=== PATIENT | male | born 1980 | race Caucasian/White ===

== ENCOUNTER 2016-06-10 15:01 | Emergency (ER) | payer MEDICAID ==
[2016-06-10 15:12] VITALS: TEMP 98.4
--- NOTE | 2016-06-10 15:35 | EDPHY ---
H & P Time Seen by Provider: 06/10/16 15:19 HPI/ROS: CHIEF COMPLAINT: Alcohol intoxication, vomiting. HISTORY OF PRESENT ILLNESS: This patient is a 35 year old male with a history of alcohol abuse who presents to the Emergency Department complaining of vomiting that he attributes to alcohol intoxication. He reports that he has been drinking heavily and blacking out regularly over the past few weeks; his last drink was just before he came to the ED. He states that he has a history of alcohol withdrawal seizures and is afraid of going through withdrawal. He continues to state that he is "doing this for my family" but it is unclear if he wishes to stop drinking; he does not want to go to the [facility]. He does not have any additional complaints. He denies any medical history apart from alcohol abuse. REVIEW OF SYSTEMS: Constitutional: +ETOH intoxication, no fever, no chills Eyes: No visual changes ENT: No sore throat Respiratory: No cough, no shortness of breath Cardiac: No chest pain Gastrointestinal: +vomiting, no abdominal pain Genitourinary: No hematuria, no dysuria Musculoskeletal: No leg pain or swelling Skin: No rash Neurological: No headache, no numbness, no weakness Psychiatric: No depression Past Medical/Surgical History: Alcoholism. Social History: Alcohol abuse, former smoker. Smoking Status: Former smoker Physical Exam: General Appearance: Alert, intoxicated, no distress Eyes: Pupils equal and round, no conjunctival pallor or injection ENT, Mouth: Mucous membranes moist Neck: Normal inspection Respiratory: Lungs are clear to auscultation Cardiovascular: Regular rate and rhythm Gastrointestinal: Abdomen is soft and non- tender Neurological: A&O, nonfocal, normal gait Skin: Warm and dry, no rash Extremities: Nontender, no pedal edema Psychiatric: Mood and affect normal Constitutional: Initial Vital Signs Temperature (C) 36.9 C 06/10/16 15:09 Heart Rate 102 H 06/10/16 15:09 Respiratory Rate 20 06/10/16 15:09 Blood Pressure 132/89 H 06/10/16 15:09 O2 Sat (%) 97 06/10/16 15:09 O2 Delivery Mode Room Air Allergies/Adverse Reactions: No Known Allergies Allergy (Verified 04/03/16 09:48) Home Medications: Medication Instructions Recorded Baclofen 04/03/16 Medical Decision Making ED Course/Re-evaluation: Labs obtained. ETOH is elevated at 427. The patient will be discharged when he is able to ambulate appropriately with instructions to check-in to the [facility] for alcohol detoxification. He will also be given a referral to the on-call primary care provider. He understands return precautions and is agreeable to this plan. - Data Points Laboratory Results: Laboratory Results 06/10/16 15:20 06/10/16 15:20 06/10/16 15:20 WBC 11.71 H 10^3/uL (3.80-9.50) RBC 4.67 10^6/uL (4.40-6.38) Hgb TNP Hct 45.6 % (40.0-51.0) MCV 97.6 fL (81.5-99.8) MCH TNP MCHC TNP RDW 12.5 % (11.5-15.2) Plt Count 146 L 10^3/uL (150-400) MPV 9.4 fL (8.7-11.7) Neut % (Auto) 72.1 % (39.3-74.2) Lymph % (Auto) 20.8 % (15.0-45.0) [place] % (Auto) 6.3 % (4.5-13.0) Eos % (Auto) 0.0 L % (0.6-7.6) Baso % (Auto) 0.4 % (0.3-1.7) Nucleat RBC Rel Count 0.0 % (0.0-0.2) Absolute Neuts (auto) 8.43 H 10^3/uL (1.70-6.50) Absolute Lymphs (auto) 2.44 10^3/uL (1.00-3.00) Absolute Monos (auto) 0.74 10^3/uL (0.30-0.80) Absolute Eos (auto) 0.00 L 10^3/uL (0.03-0.40) Absolute Basos (auto) 0.05 10^3/uL (0.02-0.10) Absolute Nucleated RBC 0.00 10^3/uL (0-0.01) Immature Gran % 0.4 % (0.0-1.1) Immature Gran # 0.05 10^3/uL (0.00-0.10) Platelet Estimate Pending Sodium 141 mEq/L (134-144) Potassium 3.6 mEq/L (3.5-5.2) Chloride 85 L mEq/L (97-110) Carbon Dioxide 27 mEq/l (22-31) Anion Gap 29 mEq/L (8-16) BUN 15 mg/dL (7-23) Creatinine 0.7 mg/dL (0.7-1.3) Estimated GFR > 60 Glucose 96 mg/dL (70-100) Calcium 9.6 mg/dL (8.5-10.4) Ethyl Alcohol 427 H* mg/dL (0-10) Departure - Departure Disposition: Home, Routine, Self-Care Clinical Impression: Alcoholic intoxication Condition: Good Instructions: Abuse of Alcohol (ED) Additional Instructions: 1. Avoid abusing alcohol. 2. Go to the [facility] for alcohol rehabilitation if you are interested in quitting drinking. 3. Return to the Emergency Department if you experience uncontrollable vomiting , seizures, confusion, or other serious concerns. Referrals: [facility] Detox 24 Hours [Outside] - As per Instructions Chato Joe MD [Medical Doctor] - As per Instructions Report Scribed for: Kasey Gandhi Report Scribed by: Carly Abernathy Date of Report: 06/10/16 Time of Report: 15:35 Physician Review and Approval Statement: 06/10/16 15:35 Portions of this note were transcribed by a medical chemist. I personally performed a history, physical exam, medical decision making, and confirmed accuracy of information the transcribed note.
[2016-06-10 15:52] LABS: ANION GAP 29 mEq/L (8-16); CALCIUM 9.6 mg/dL (8.5-10.4); CARBON DIOXIDE 27 mEq/l (22-31); CHLORIDE 85 mEq/L (97-110); CREATININE 0.7 mg/dL (0.7-1.3); GLOMERULAR FILTRATION RATE > 60; GLUCOSE 96 mg/dL (70-100); POTASSIUM 3.6 mEq/L (3.5-5.2); SODIUM 141 mEq/L (134-144)
[2016-06-10 16:20] LABS: ETHANOL SERUM 427 mg/dL (0-10)
[2016-06-10 16:53] LABS: % IMMATURE GRANULYOCYTES 0.4 % (0.0-1.1); ABSOLUTE IMMATURE GRANULOCYTES 0.05 10^3/uL (0.00-0.10); ADD DIFF? NO; ADD MORPH? YES; ADD SCAN? NO; ATYPICAL LYMPHOCYTE FLAG 0 (0-99); FRAGMENT RBC FLAG 0 (0-99); HEMATOCRIT 45.6 % (40.0-51.0); LEFT SHIFT FLG 0 (0-99); LIPEMIA HEMOLYSIS FLAG 100 (0-99); MEAN CELL VOLUME 97.6 fL (81.5-99.8); MEAN PLATELET VOLUME 9.4 fL (8.7-11.7); PLATELET CLUMPS FLAG 0 (0-99); PLATELET COUNT 146 10^3/uL (150-400); RED BLOOD CELL COUNT 4.67 10^6/uL (4.40-6.38); RED CELL DISTRIBUTION WIDTH 12.5 % (11.5-15.2)
[2016-06-10 17:31] VITALS: BP 126/67; PULSE 99; RESP 12; O2SAT 95
[2016-06-10 18:02] LABS: HYPOCHROMIA 1+; LARGE PLATELETS PRESENT; MACROCYTES 1+; PLATELET ESTIMATE ADEQUATE (ADEQ); POLYCHROMASIA 1+
== END 2016-06-10 17:30 | disposition home or self-care (01) ==
DX: F10.129 Alcohol abuse with intoxication, unspecified (principal); Z87.891 Personal history of nicotine dependence
CPT/HCPCS: G0480

== ENCOUNTER 2016-06-11 09:44 | Emergency (ER) | payer MEDICAID ==
[2016-06-11 09:49] VITALS: TEMP 98.4
[2016-06-11] MEDS ORDERED: NS 1,000 ML IV ONE (11:06)
[2016-06-11] MEDS ORDERED: ONDANSETRON 4 MG/2 ML VIAL IVP ONE (11:06)
[2016-06-11] MEDS ORDERED: LORazepam 2 MG/ML INJ IVP ONE ×2 (11:07→11:09)
[2016-06-11] MEDS ORDERED: MVI WITH VIT K 10 ML, FOLIC ACID 2.5 MG, THIAMINE HCL 100 MG, MAGNESIUM SULFATE 2 GM in... IV ONE (11:09)
--- NOTE | 2016-06-11 11:11 | EDPHY ---
H & P Time Seen by Provider: 06/11/16 10:49 HPI/ROS: CHIEF COMPLAINT: I am withdrawing HISTORY OF PRESENT ILLNESS: 35-year-old male history of alcoholism seen emergency department last evening for acute alcohol intoxication, [facility]. He checked out this morning, notes that he has been experiencing withdrawal like symptoms including shaking, nausea. He denies hallucination. Denies seizure. He does have prior history of alcohol withdrawal seizure. No gait instability. REVIEW OF SYSTEMS: A ten point review of systems was performed and is negative with the exception of the items mentioned in the HPI PAST MEDICAL & SURGICAL HISTORY: Alcohol Abuse SOCIAL HISTORY:last drink of alcohol yesterday afternoon FAMILY HISTORY: No pertinent family history PHYSICAL EXAM (Prior to examination, patient consented to physical exam, hands were washed and my usual and customary physical exam procedures followed) 1) GENERAL: Well-developed, well-nourished, alert and oriented. Appears to be in no acute distress. Answering questions appropriately. 2) HEAD: Normocephalic, atraumatic 3) HEENT: Pupils equal, round, reactive to light bilaterally. Sclera anicteric. 4) NECK: Full range of motion, no meningeal signs. 5) LUNGS: Clear auscultation bilaterally, no wheezes, no rhonchi, no retractions. 6) HEART: Regular rate and rhythm, no murmur, no heave, no gallop. 7) ABDOMEN: No guarding, no rebound, no focal tenderness, 8) MUSCULOSKELETAL: tremulous. No peripheral edema or discoloration. 9) BACK: , no visual or palpable abnormality. 10) SKIN: No rash, no petechiae. 11) Psychiatric: Patient is oriented X 3, there is no agitation. DIFFERENTIAL DIAGNOSIS: in no particular order including but limited to delirium tremens, acute alcohol withdrawal, seizure Smoking Status: Former smoker Constitutional: Initial Vital Signs Temperature (C) 36.9 C 06/11/16 09:46 Heart Rate 95 06/11/16 09:46 Respiratory Rate 16 06/11/16 09:46 Blood Pressure 139/91 H 06/11/16 09:46 O2 Sat (%) 94 06/11/16 09:46 O2 Delivery Mode Room Air O2 (L/minute) 2 Allergies/Adverse Reactions: No Known Allergies Allergy (Verified 04/03/16 09:48) Home Medications: Medication Instructions Recorded Baclofen 04/03/16 MDM/Departure - MDM Medications Given: Discontinued Medications Sodium Chloride (Ns) 1,000 mls @ 0 mls/hr IV ONCE ONE PRN Reason: Wide Open Stop: 06/11/16 11:07 Last Admin: 06/11/16 11:10 Dose: 1,000 mls Multivitamins 10 ml/ Folic Acid 2.5 mg/ Thiamine HCl 100 mg/ Magnesium Sulfate 2 gm/Sodium Chloride 1,015.5 mls @ 0 mls/hr IV EDNOW ONE PRN Reason: As Directed Stop: 06/11/16 11:10 Last Admin: 06/11/16 12:22 Dose: 1,015.5 mls Lorazepam (Ativan Injection) 2 mg IVP EDNOW ONE Stop: 06/11/16 11:08 Last Admin: 06/11/16 11:45 Dose: 2 mg Lorazepam (Ativan Injection) 2 mg IVP EDNOW ONE Stop: 06/11/16 11:10 Last Admin: 06/11/16 11:39 Dose: Not Given Ondansetron HCl (Zofran) 4 mg IVP EDNOW ONE Stop: 06/11/16 11:07 Last Admin: 06/11/16 11:58 Dose: 4 mg ED Course/Re-evaluation: 1:30 p.m.: Re-evaluation. He is sleeping, appears significantly improved, states that his alcohol withdrawal symptoms have resolved. We discussed options including sending [facility] which he declines. I do not think that sending the patient home with a prescription for benzodiazepine is appropriate management for his long-term alcoholism. He feels comfortable being discharged. No evidence of delirium tremens. Usual customary alcohol withdrawal precautions instructions provided. I also specifically inquired whether he has been experiencing hallucination, suicidal or homicidal ideation and he denies. - Depart Disposition: Home, Routine, Self-Care Clinical Impression: Alcohol withdrawal Condition: Good Instructions: Alcohol Withdrawal (ED) Additional Instructions: We have made you an appointment with [facility] for 845 tomorrow morning, June 11 at 845 AM. The address is [address] [place] [address]. If for any reason you are unable to make it please call them at [phone] Call 911 if you developed hallucination , seizure, or any other symptoms that concern you. Referrals: [facility] [Outside] - 1-2 days without fail
[2016-06-11 13:19] VITALS: BP 131/77; RESP 16
[2016-06-11 13:28] VITALS: PULSE 89; O2SAT 96
== END 2016-06-11 14:39 | disposition home or self-care (01) ==
DX: F10.239 Alcohol dependence with withdrawal, unspecified (principal); Z87.891 Personal history of nicotine dependence
CPT/HCPCS: 96365; J2405; J3411

== ENCOUNTER 2017-01-24 19:22 | Emergency (ER) | payer MEDICAID, OTHER ==
[2017-01-24 19:34] VITALS: O2SAT 95
--- NOTE | 2017-01-24 20:20 | EDPHY ---
H & P Time Seen by Provider: 01/24/17 19:38 HPI/ROS: HPI Alcohol withdrawal. 36-year-old male on foot. Patient reports he has a long history of alcohol abuse. He states that his last drink was about an hour prior to arrival just after he got out of an AA meeting. He is requesting treatment for alcohol withdrawal. Denies any history of trauma or abuse. He drinks hard liquor. ROS: Constitutional: No fever, no chills. No weakness. Eyes: No discharge. No changes in vision. ENT: No sore throat. No nasal congestion or rhinorrhea. Respiratory: No cough. No shortness of breath. Cardiac: No chest pain, no palpitations. Gastrointestinal: No abdominal pain, no vomiting, no diarrhea. Genitourinary: No hematuria. No dysuria or increased frequency with urination. Musculoskeletal: No back pain. No neck pain. No myalgias or arthralgias. Skin: No rashes. Neurological: No headache. No focal weakness or altered sensation. Past medical history: Alcohol abuse, history of alcohol withdrawal seizures, migraine headaches. Social history: Currently here by himself. He states he has a father who is coming to the emergency department to meet him now. Smoker. As above. Physical Exam: General Appearance: Alert, no distress. He appears relaxed. This patient is responding to questions appropriately and in full sentences. This patient appears well-hydrated and well-nourished. Eyes: Pupils equal and round no pallor or injection. No lid edema, erythema or injection. Respiratory: There are no retractions, lungs are clear to auscultation with good air movement bilaterally. Cardiovascular: Regular rate and rhythm. No murmur. Gastrointestinal: Abdomen is soft and nontender, no masses, bowel sounds normal. No focal tenderness at McBurney's point. No Giron sign. Neurological: Motor sensory function is grossly intact. Cranial nerves are normal. Gait is normal. He does not have any significant resting tremor. Skin: Warm and dry, no rashes. Musculoskeletal: Neck is supple and nontender. Extremities are symmetrical. All joints range without pain or impingement. Psychiatric: No agitation. No depression. Database: EKG: Imaging: Procedures: Emergency department course: Vital signs reviewed. Mildly tachycardic in triage. Not tachycardic on my exam. Plan will be to discharge him to the [facility] with a Librium prepack. I do not believe he requires emergent treatment for alcohol withdrawal at this time. He is in agreement with this plan. He will be transported either by taxi with medication to be given to the [facility] staff for administration by the tank truck driver or by his father if his father is reliable. Patient in agreement with this plan. Discussed with nursing staff. Patient's remaining emergency department course under my care uneventful. Patient discharged in good condition as above. Differential Diagnosis: The differential diagnosis on this patient includes but is not limited to alcohol abuse, alcohol withdrawal. Delirium tremens unlikely. This represents a partial list of diagnoses considered. These considerations are based on history, physical exam, past history, reassessment and diagnostic testing. Smoking Status: Heavy smoker Constitutional: Initial Vital Signs Temperature (C) 37 C 01/24/17 19:30 Heart Rate 114 H 01/24/17 19:30 Respiratory Rate 20 01/24/17 19:30 Blood Pressure 129/110 H 01/24/17 19:30 O2 Sat (%) 95 01/24/17 19:30 O2 Delivery Mode Nasal Cannula Allergies/Adverse Reactions: No Known Allergies Allergy (Verified 01/24/17 19:26) Home Medications: Medication Instructions Recorded NK [No Known Home Meds] 01/24/17 Departure - Departure Disposition: Home, Routine, Self-Care Clinical Impression: Alcohol abuse, Alcohol withdrawal Condition: Good Instructions: Alcohol Withdrawal (ED) Additional Instructions: Read and follow provided instructions. Follow-up with your primary care physician on Thursday or Thursday of this week to discuss inpatient detox options. Librium to be administered by the [facility] staff for alcohol withdrawal symptoms. Return to the emergency department for tremors, seizure or other serious concerns. Referrals: [facility] [place] [facility] 24 Hours [Outside] - As per Instructions
[2017-01-24] MEDS ORDERED: CHLORDIAZEPOXIDE 25MG PREPK#6 BTL TAKEHOME ONE (20:23)
[2017-01-24 20:40] VITALS: BP 140/88; PULSE 99; RESP 16; TEMP 98.2
== END 2017-01-24 20:39 | disposition home or self-care (01) ==
DX: F10.239 Alcohol dependence with withdrawal, unspecified (principal); F17.200 Nicotine dependence, unspecified, uncomplicated

== ENCOUNTER 2017-03-11 12:20 | Emergency (ER) | payer MEDICAID ==
[2017-03-11 13:14] VITALS: BP 126/92; PULSE 140; RESP 16; O2SAT 98
--- NOTE | 2017-03-11 14:02 | EDPHY ---
H & P Time Seen by Provider: 03/11/17 13:54 HPI/ROS: CHIEF COMPLAINT: Alcohol abuse HISTORY OF PRESENT ILLNESS: This patient is a 36 year old male complaining of inability to eat or drink and possible seizure yesterday evening secondary to alcohol use. He states he has been drinking heavily lately, but does not want to go to the [facility]. He feels sore on his left side and suspects he may have had a seizure last night. He states he is currently stable but worried about withdrawal. His primary concern is discovering whether he has had a seizure. He has no further complaints at this time. REVIEW OF SYSTEMS: A 10 point review of systems was performed and is negative with the exception of the elements mentioned in the history of present illness. Past Medical/Surgical History: 1. Alcohol withdrawal seizures 2. Migraine Social History: Daily alcohol use. Current tobacco use. Lives in [place]. Smoking Status: Current every day smoker Physical Exam: General Appearance: Alert, intoxicated Eyes: Pupils equal and round, no conjunctival pallor ENT, Mouth: Mucous membranes moist Neck: Normal inspection Respiratory: Lungs are clear to auscultation Cardiovascular: Regular rate and rhythm Gastrointestinal: Abdomen is soft and non-tender Neurological: Alert, nonfocal, steady gait Skin: Warm and dry Extremities: Normal inspection Psychiatric: fluctuating affect Constitutional: Initial Vital Signs Heart Rate 140 H 03/11/17 13:11 Respiratory Rate 16 03/11/17 13:11 Blood Pressure 126/92 H 03/11/17 13:11 O2 Sat (%) 98 03/11/17 13:11 Allergies/Adverse Reactions: No Known Allergies Allergy (Verified 03/11/17 12:46) Home Medications: Medication Instructions Recorded NK [No Known Home Meds] 01/24/17 Medical Decision Making ED Course/Re-evaluation: 36 y/o male presents with alcohol intoxication and concern for recent seizure. The patient is dissatisfied by our inability to determine whether he had a seizure yesterday and recommendation that he proceed to the [facility] for assistance in alcohol detox. He would like to leave prior to any further conversations or interventions. I recommended he proceed to the [facility] for further assistance. He is intoxicated, but has medical decision-making capacity and does not meet hold criteria. Departure - Departure Disposition: Home, Routine, Self-Care Clinical Impression: Alcoholism Condition: Good Instructions: Alcohol Dependence (ED) Additional Instructions: I suggest you proceed to the [facility] for assistance with alcohol detox. Referrals: UNKNOWN,[facility] [Other] - As per Instructions [facility] 24 Hours [Outside] - As per Instructions Report Scribed for: Kasey Gandhi Report Scribed by: Yolanda Anglin Date of Report: 03/11/17 Time of Report: 14:03 Physician Review and Approval Statement: 03/11/17 14:03 Portions of this note were transcribed by a nuclear medical technologist. I personally performed a history, physical exam, medical decision making, and confirmed accuracy of information the transcribed note.
--- NOTE | 2017-03-11 16:53 | ASDISCHSUM ---
Discharge Information Plan Status:Home with No Needs Medically Cleared to Leave: Discharge Date:03/11/2017 02:24 PM CM D/C Disposition:Left Without Being Seen ADT D/C Disposition:Home, Routine, Self-Care Projected Discharge Date:03/11/2017 02:24 PM Transportation at D/C:None or Unknown Discharge Delay Reason: Follow-Up Date:03/11/2017 02:24 PM Discharge Slot: Final Diagnosis: Placement Information Patient Contact Information Contact Name:PREET Relationship:Father Address:[address] Work Phone: City:[facility] Phone: [facility]/Zip Code:[place] [address] Email: Financial Information Financial Class: Primary Plan Desc:[employer] Primary Plan Number:[id number] Secondary Plan Desc: Secondary Plan Number: Assessment Information LACE LACE Emergency dept visits in Answers: 2 last 6 months Score: 2 Date Signed: 03/11/2017 04:52 PM Electronically Signed By:Beatriz Camp RN Intervention Information
== END 2017-03-11 14:24 | disposition home or self-care (01) ==
DX: F10.20 Alcohol dependence, uncomplicated (principal); F17.200 Nicotine dependence, unspecified, uncomplicated

== ENCOUNTER 2017-05-17 02:54 | Emergency (ER) | payer MEDICAID ==
[2017-05-17 02:57] VITALS: TEMP 97.9
[2017-05-17] MEDS ORDERED: LORazepam 2 MG/ML INJ IVP ONE (03:00)
--- NOTE | 2017-05-17 03:00 | EDPHY ---
H & P Stated Complaint: ETOH withdrawal Time Seen by Provider: 05/17/17 02:56 HPI/ROS: Chief Complaint: Alcohol withdrawal HPI: 36-year-old male with a history of chronic alcoholism presenting with her withdrawal symptoms that started this morning. Patient states his last drink was yesterday evening. He has had an alcohol withdrawal seizure in the past. Some nausea, no vomiting, no fevers or chills. No cough. No chest pain shortness of breath. No abdominal pain. ROS: 10 point Review of Systems is negative except as noted in the HPI. PMH: Chronic alcohol abuse Social History: No smoking, daily heavy alcohol, no recreational drug use Family History: non-contributory Physical Exam: Gen: Awake, Alert, tremulous, anxious appearing HEENT: Nose: no rhinorrhea Eyes: PERRLA, EOMI Mouth: Moist mucosa Neck: Supple, no JVD Chest: nontender, lungs clear to auscultation Heart: S1, S2 normal, no murmur Abd: Soft, non-tender, no guarding Back: no CVA tenderness, no midline tenderness Ext: no edema, non-tender Skin: no rash Neuro: CN II-XII intact, Sensation grossly intact, Strength 5/5 in bilateral upper and lower extremities - Personal History Current Tetanus Diphtheria and Acellular Pertussis (TDAP): Yes Tetanus Vaccine Date: < 10 YEARS - Medical/Surgical History Hx Asthma: No Hx Chronic Respiratory Disease: No Hx Diabetes: No Hx Cardiac Disease: No Hx Renal Disease: No Hx Cirrhosis: No Hx Alcoholism: Yes Hx HIV/AIDS: No Hx Splenectomy or Spleen Trauma: No Other PMH: medical- etoh, etoh w/d seizures. History of migraines - Social History Smoking Status: Current every day smoker Constitutional: Initial Vital Signs Temperature (C) 36.6 C 05/17/17 02:55 Heart Rate 85 05/17/17 02:55 Respiratory Rate 19 05/17/17 02:55 Blood Pressure 157/85 H 05/17/17 02:55 O2 Sat (%) 99 05/17/17 02:55 O2 Delivery Mode Room Air O2 (L/minute) 2 Allergies/Adverse Reactions: No Known Allergies Allergy (Verified 05/17/17 02:55) Home Medications: Medication Instructions Recorded NK [No Known Home Meds] 01/24/17 Medical Decision Making ED Course/Re-evaluation: Patient improved after Ativan. He is resting comfortably. No longer tremulous. Will discharge with Librium prepack. He has been [facility] ref[facility]. He already has a sponsor with . He is currently not clinically intoxicated. - Data Points Medications Given: Discontinued Medications Lorazepam (Ativan Injection) 2 mg IVP EDNOW ONE Stop: 05/17/17 03:01 Last Admin: 05/17/17 03:05 Dose: 2 mg Departure - Departure Disposition: Home, Routine, Self-Care Clinical Impression: Alcohol withdrawal Condition: Good Instructions: Alcohol Withdrawal (ED), Chlordiazepoxide (By mouth) Additional Instructions: Please contact your sponsor and follow up with the [facility] for help with your alcohol use. You may take the Librium as needed for alcohol withdrawal symptoms. Return to the emergency department for worsening tremors, nausea, vomiting, headache, fevers, chills, or any other concerns. Referrals: [facility] 24 Hours [Outside] - As per Instructions
[2017-05-17 03:45] VITALS: O2SAT 96
[2017-05-17] MEDS ORDERED: CHLORDIAZEPOXIDE 25MG PREPK#6 BTL TAKEHOME ONE (04:26)
[2017-05-17 04:40] VITALS: BP 111/69; PULSE 90; RESP 20
== END 2017-05-17 04:52 | disposition home or self-care (01) ==
LOC: EDUNIT#
DX: F10.239 Alcohol dependence with withdrawal, unspecified (principal); F17.200 Nicotine dependence, unspecified, uncomplicated
CPT/HCPCS: 96374; J2060

== ENCOUNTER 2018-10-21 16:10 | Emergency (ER) | payer MEDICAID | END 2018-10-21 18:48 | disposition home or self-care (01) ==